=== PATIENT | male | born 1990 | race Caucasian/White ===

== ENCOUNTER 2019-03-20 22:04 | Emergency (ER) | payer MEDICAID ==
[~2019-03-20] VITALS: Ht 182.9 cm; Wt 85.0 kg
[2019-03-20 22:16] VITALS: BP 132/82; TEMP 98
[2019-03-20 23:01] LABS: STREP SCREEN NEGATIVE
[2019-03-20] MEDS ORDERED: AMOXICILLIN 50500 MG PO (23:58)
[2019-03-21] VITALS: PULSE 75
== END 2019-03-21 00:11 | disposition home or self-care (01) ==
LOC: COL.ER 22:04
PROVIDERS: Physician Assistant
DX: J02.9 Acute pharyngitis, unspecified (principal); H61.23 Impacted cerumen, bilateral